=== PATIENT | female | born 1990 | race Caucasian/White ===

== ENCOUNTER 2024-11-12 21:47 | Emergency (ER) | payer MEDICAID ==
[~2024-11-12] VITALS: Ht 154.9 cm; Wt 62.0 kg
[2024-11-12 21:55] VITALS: TEMP 36.7; O2SAT 99
[2024-11-12 22:59] LABS: CLARITY URINE CLEAR (CLEAR); COLOR URINE YELLOW (YELLOW); GLUCOSE URINE NEGATIVE (NEGATIVE); KETONES URINE TRACE (NEGATIVE); LEUKOCYTE ESTERASE URINE NEGATIVE (NEGATIVE); NITRITE URINE NEGATIVE (NEGATIVE); OCCULT BLOOD URINE 1+ (NEGATIVE); PH URINE 5.5 (4.5-8.0); PROTEIN URINE TRACE (NEGATIVE); SPECIFIC GRAVITY URINE 1.037 (1.005-1.030); UROBILINOGEN URINE 0.2 E.U./dL (0.2-1.0)
[2024-11-12 23:31] LABS: CHLORIDE 107 mEq/L (98-107); POTASSIUM 3.5 mEq/L (3.5-5.1); SODIUM 140 mEq/L (136-145)
[2024-11-12 23:32] LABS: CALCIUM 9.1 mg/dL (8.7-10.4); CARBON DIOXIDE 27 mEq/L (21-32)
[2024-11-12 23:33] LABS: BASOPHILS % 0.9 % (0.0-2.0); HEMATOCRIT. 36.2 % (36.0-48.0); HEMOGLOBIN. 12.2 g/dL (12.0-16.0); LYMPHOCYTES % 42.4 % (20.0-50.0); MEAN CORPUSCULAR HGB CONC 33.8 g/dL (31.0-37.0); MEAN CORPUSCULAR VOLUME 94.6 fL (81.0-99.0); MEAN PLATELET VOLUME 7.2 fl (7.4-10.4); MONOCYTES % 9.9 % (2.0-8.0); NEUTROPHILS % 45.8 % (40.0-76.0); PLATELET 295 x1000/uL (130-400); RED BLOOD CELL COUNT 3.83 mill/uL (4.2-5.4); RED CELL DISTRIBUTION WIDTH 12.7 % (11.6-14.6); WHITE BLOOD COUNT 6.2 x1000/uL (4.5-11.0)
[2024-11-12 23:35] LABS: BACTERIA URINE 1+; SQUAMOUS EPITHELIAL CELL URINE 1+ /lpf (RARE/1+); WBC URINE 0-2 /hpf (0-2)
[2024-11-12 23:37] LABS: CREATININE 0.8 mg/dL (0.6-1.0); GLUCOSE 105 mg/dL (70-105); UREA NITROGEN BLOOD 13 mg/dL (9-23)
[2024-11-12 23:39] LABS: ALANINE AMINOTRANSFERASE 11 IU/L (10-49); ASPARTATE AMINOTRANSFERASE 12 IU/L (<34); BILIRUBIN TOTAL 0.3 mg/dL (0.1-1.0)
[2024-11-12] MEDS: METOCLOPRAMIDE HCL 10MG TABLET PO ONE (23:42)
[2024-11-12] MEDS: KETOROLAC 30MG/ML VIAL IM ONE (23:42)
[2024-11-12 23:58] LABS: BILIRUBIN DIRECT < 0.1 mg/dL (<=3.0)
[2024-11-13 00:49] LABS: HCG SCREEN NEGATIVE
[2024-11-13] MEDS ORDERED: ASPI-1154 PO (01:05)
[2024-11-13 01:31] VITALS: BP 106/70; PULSE 83; RESP 16; O2SAT 100
== END 2024-11-13 01:34 | disposition home or self-care (01) ==
LOC: ER 21:47
DX: G43.909 Migraine, unspecified, not intractable, without status migrainosus (principal); R10.9 Unspecified abdominal pain
CPT/HCPCS: 99283; 80076; 80048; 81003; 81025; 84703; 83690; 85025; 36415; 96372; J1885; J8597